=== PATIENT | female | born 1965 | race Caucasian/White ===

== ENCOUNTER 2017-04-07 18:24 | Observation (INO) | payer OTHER ==
[~2017-04-07] VITALS: Ht 162.6 cm; Wt 105.6 kg
[2017-04-07] VITALS (10 sets, daily range): BP systolic 133–176; BP diastolic 72–86; PULSE 55–68; RESP 16–18; TEMP 97–98.6; O2SAT 96–100
--- NOTE | 2017-04-07 18:43 | PD ---
HPI Chief Complaint: Chest Pain Time Seen by Provider: 18:34 Travel History International Travel<30 days: No Contact w/Intl Traveler<30days: No Traveled to known affect area: No History of Present Illness HPI 51-year-old female here by private vehicle for evaluation of chest pain that started about 30 minutes prior to arrival while driving. Patient describes substernal chest pressure that radiates to her left shoulder. Pain is currently 3 out of 10. No modifying factors. She states she feels as though the pressure is similar to previous episodes of bronchitis, however she has not been coughing and has not had any recent upper respiratory symptoms. No fevers or chills. No paresthesias or motor deficits. Patient reports history of severe case of croup when she was younger with frequent pulmonary infections subsequently. She denies any known history of CAD. No family history of CAD. She is a nonsmoker. No history of DVT or PE. PFSH Past Medical History Anxiety: Yes Cancer: No Cardiovascular Problems: No Diabetes: No Diminished Hearing: No Endocrine: No Gastrointestinal Disorders: Yes (GERD; HIATAL HERNIA SX) Hepatitis: No Hiatal Hernia: Yes (HX) Immune Disorder: No Musculoskeletal: No Neurologic: No Psychiatric: No Reproductive: Yes (PELVIC PAIN) Respiratory: No Immunizations Current: Yes Thyroid Disease: No Tetanus Vaccination: Unknown Influenza Vaccination: No ?: Not Tubal Ligation: Yes Past Surgical History Abdominal Surgery: Yes (11/23 EXP LAP; 2004 CHRISTOPH ; 2011 LAP BAND) AICD: No Body Medical Devices: LAP BAND Cholecystectomy: Yes Gynecologic Surgery: Yes (ABLATION) Hysterectomy: Yes Joint Replacement: No Pacemaker: No Other Surgery: Yes Social History Alcohol Use: Yes (1-2 DRINKS PER WEEK) Tobacco Use: No Substance Use: No Allergies-Medications (Allergen,Severity, Reaction): Coded Allergies: Codeine (Unverified Allergy, Intermediate, PAIN UPPER ABD FOLLOWED BY ANXIETY, 04/07/17) Morphine (Unverified Allergy, Intermediate, LUZMA UPPER ABD FOLLOWED BY ANXIETY, 04/07/17) Amoxicillin (Verified Allergy, Mild, Rash, 04/07/17) Reported Meds & Prescriptions Reported Meds & Active Scripts Active No Active Prescriptions or Reported Medications Review of Systems Except as stated in HPI: all other systems reviewed are Neg Physical Exam Narrative GENERAL: Well-developed, well-nourished, overweight, comfortable, no apparent distress. SKIN: Focused skin assessment warm/dry. HEAD: Atraumatic. Normocephalic. EYES: Pupils equal and round. No scleral icterus. No injection or drainage. ENT: Mucous membranes pink and moist. NECK: Trachea midline. No JVD. CARDIOVASCULAR: Regular rate and rhythm. Distal pulses brisk and equal bilaterally. RESPIRATORY: No accessory muscle use. Clear to auscultation. Breath sounds equal bilaterally. GASTROINTESTINAL: Abdomen soft, non-tender, nondistended. MUSCULOSKELETAL: No obvious deformities. No clubbing. No cyanosis. No edema. NEUROLOGICAL: Awake and alert. No obvious cranial nerve deficits. Motor grossly within normal limits. Normal speech. PSYCHIATRIC: Appropriate mood and affect; insight and judgment normal. Data Data Last Documented VS Vital Signs Date Time Temp Pulse Resp B/P Pulse Ox O2 Delivery O2 Flow Rate FiO2 04/07/17 20:36 68 18 138/82 98 Room Air 04/07/17 18:30 98.6 Orders Electrocardiogram (04/07/17 18:39) Basic Metabolic Panel (Bmp) (04/07/17 18:39) Ckmb (Isoenzyme) Profile (04/07/17 18:39) Complete Blood Count With Diff (04/07/17 18:39) D-Dimer (04/07/17 18:39) Magnesium (Mg) (04/07/17 18:39) Prothrombin Time / Inr (Pt) (04/07/17 18:39) Act Partial Throm Time (Ptt) (04/07/17 18:39) Troponin I (04/07/17 18:39) Chest, Single Ap (04/07/17 18:39) Ecg Monitoring (04/07/17 18:39) Bilateral Bp Monitoring (04/07/17 18:39) Iv Access Insert/Monitor (04/07/17 18:39) Oximetry (04/07/17 18:39) Oxygen Administration (04/07/17 18:39) Aspirin Chew (Aspirin Chew) (04/07/17 18:45) Sodium Chloride 0.9% Flush (Ns Flush) (04/07/17 18:45) Nitroglycerin Sl (Nitrostat Sl) (04/07/17 18:45) Ct Pulmonary Angiogram (04/07/17 19:37) Iohexol 350 Inj (Omnipaque 350 Inj) (04/07/17 20:01) Labs Laboratory Tests Test 04/07/17 18:30 White Blood Count 9.0 TH/MM3 Red Blood Count 4.47 MIL/MM3 Hemoglobin 13.3 GM/DL Hematocrit 39.3 % Mean Corpuscular Volume 88.1 FL Mean Corpuscular Hemoglobin 29.8 PG Mean Corpuscular Hemoglobin 33.8 % Concent Red Cell Distribution Width 13.0 % Platelet Count 273 TH/MM3 Mean Platelet Volume 8.7 FL Neutrophils (%) (Auto) 65.8 % Lymphocytes (%) (Auto) 27.9 % Monocytes (%) (Auto) 4.8 % Eosinophils (%) (Auto) 1.2 % Basophils (%) (Auto) 0.3 % Neutrophils # (Auto) 6.0 TH/MM3 Lymphocytes # (Auto) 2.5 TH/MM3 Monocytes # (Auto) 0.4 TH/MM3 Eosinophils # (Auto) 0.1 TH/MM3 Basophils # (Auto) 0.0 TH/MM3 CBC Comment DIFF FINAL Differential Comment Prothrombin Time 10.4 SEC Prothromb Time International 0.9 RATIO Ratio Activated Partial 25.5 SEC Thromboplast Time D-Dimer Quantitative (PE/DVT) 0.43 MG/L FEU Sodium Level 144 MEQ/L Potassium Level 4.1 MEQ/L Chloride Level 107 MEQ/L Carbon Dioxide Level 27.9 MEQ/L Anion Gap 9 MEQ/L Blood Urea Nitrogen 23 MG/DL Creatinine 0.69 MG/DL Estimat Glomerular Filtration 90 ML/MIN Rate Random Glucose 81 MG/DL Calcium Level 9.5 MG/DL Magnesium Level 2.4 MG/DL Total Creatine Kinase 66 U/L Troponin I LESS THAN 0.02 NG/ML [facility] Medical Decision Making Medical Screen Exam Complete: Yes Emergency Medical Condition: Yes Medical Record Reviewed: Yes Interpretation(s) EKG: Sinus, rate 67, leftward axis, normal intervals, T-wave inversions in V1 through V5, S1Q3T3 pattern, unchanged from prior Differential Diagnosis ACS, pneumothorax, pericarditis, PE, pneumonia, GERD Narrative Course Vital signs reviewed. CBC is unremarkable. BMP is unremarkable. Cardiac enzymes are negative. Chest x-ray: No acute disease. CT pulmonary angiogram: CONCLUSION: 1. No evidence of pulmonary emboli. 2. The lungs are clear. Patient was made aware of all findings. She is resting comfortably. Chest pain did improve with sublingual nitroglycerin. She is still having some left scapular/shoulder pain. She was given a full aspirin here in the emergency department. She will be admitted to the chest pain center for further cardiac evaluation. She is amenable to this plan. Case discussed with hospitalist Dr. Soriano who will admit the patient to her service to the chest pain center. Diagnosis Primary Impression: Chest pain Qualified Code: R07.9 - Chest pain, unspecified type Admitting Information Admitting Physician Requests: Observation Scripts No Active Prescriptions or Reported Meds Luis Mayorga MD Apr 07, 2017 18:43
[2017-04-07] MEDS ORDERED: NITROGLYCERIN 0.4 MG SL 25 TABS/BTL SL ONE (18:45)
[2017-04-07] MEDS ORDERED: ASPIRIN 81 MG CHEW TAB PO ONE (18:45)
[2017-04-07] MEDS ORDERED: SODIUM CHLORIDE 0.9% FLUSH 10 ML FLUSH IVF PRN (18:45)
[2017-04-07 19:11] LABS: BASOPHIL % 0.3 % (0.0-2.0); EOSINOPHIL # 0.1 TH/MM3 (0-0.4); EOSINOPHIL % 1.2 % (0.0-4.0); HEMATOCRIT 39.3 % (35.0-46.0); HEMO FLAGS DIFF FINAL; LYMPH % 27.9 % (9.0-44.0); LYMPHOCYTE # 2.5 TH/MM3 (1.0-4.8); MEAN CELL VOLUME 88.1 FL (80.0-100.0); MEAN CORPUSCULAR HEMOGLOBIN 29.8 PG (27.0-34.0); MEAN CORPUSCULAR HGB CONC 33.8 % (32.0-36.0); MONO % 4.8 % (0.0-8.0); NEUT % 65.8 % (16.0-70.0); PLATELET COUNT 273 TH/MM3 (150-450); RED BLOOD COUNT 4.47 MIL/MM3 (4.00-5.30)
[2017-04-07 19:16] LABS: CHLORIDE 107 MEQ/L (98-107); POTASSIUM 4.1 MEQ/L (3.5-5.1); SODIUM (NA) 144 MEQ/L (136-145)
[2017-04-07 19:19] LABS: ANION GAP 9 MEQ/L (5-15); BICARBONATE 27.9 MEQ/L (21.0-32.0); BLOOD UREA NITROGEN 23 MG/DL (7-18); MAGNESIUM 2.4 MG/DL (1.5-2.5)
[2017-04-07 19:23] LABS: APTT (PATIENT) 25.5 SEC (24.3-30.1); GLOMERULAR FILTRATION RATE 90 ML/MIN (>89); INTERNATIONAL NORMALIZED RATIO 0.9 RATIO; PROTHROMBIN TIME - PATIENT 10.4 SEC (9.8-11.6)
[2017-04-07 19:28] LABS: CREATINE KINASE 66 U/L (26-192)
--- NOTE | 2017-04-07 20:00 | RADRPT ---
EXAM DATE/TIME: 04/07/2017 19:49 [facility] COMPARISON: CHEST SINGLE AP, April 23, 2015, 20:22. INDICATIONS : Patient had chest pain since she woke up this morning. MEDICAL HISTORY : None. SURGICAL HISTORY : None. ENCOUNTER: Initial ACUITY: 1 day PAIN SCORE: 2/10 LOCATION: Left chest FINDINGS: A single view of the chest demonstrates the lungs to be symmetrically aerated without evidence of mas s, infiltrate or effusion. The cardiomediastinal contours are unremarkable. Osseous structures are intact. CONCLUSION: No acute disease. Karlo Youngblood MD on April 07, 2017 at 19:57 Board Certified Radiologist. This report was verified electronically.
[2017-04-07] MEDS ORDERED: IOHEXOL 350 MG/ML 10 ML VIAL (for RAD DIAG) IV ONE (20:01)
--- NOTE | 2017-04-07 20:16 | RADRPT ---
EXAM DATE/TIME: 04/07/2017 19:47 [facility] COMPARISON: No previous studies available for comparison. INDICATIONS : Chest pain radiating to left shoulder for 30 minutes prior to arriving in emergency room. IV CONTRAST: 75 cc Omnipaque 350 (iohexol) IV RADIATION DOSE: 19.03 CTDIvol (mGy) MEDICAL HISTORY : Hernia, hiatal. SURGICAL HISTORY : Cholecystectomy. Tubal ligation.Hysterectomy.Lap band ENCOUNTER: Initial ACUITY: 1 day PAIN SCALE: 3/10 LOCATION: Left chest TECHNIQUE: Volumetric scanning of the chest was performed using a pulmonary embolism protocol MIP images were re constructed. Using automated exposure control and adjustment of the mA and/or kV according to patien t size, radiation dose was kept as low as reasonably achievable to obtain optimal diagnostic quality images. DICOM format image data is available electronically for review and comparison. FINDINGS: PULMONARY ARTERIES: No filling defects are seen in the pulmonary arteries through the segmental level. LUNGS: There is no consolidation or pneumothorax . No concerning pulmonary nodule is visualized. PLEURAE: There is no pleural thickening or pleural effusion. MEDIASTINUM: There is good visualization of the great vessels of the middle mediastinum. No evidence of mediastin al or hilar adenopathy/mass. MUSCULOSKELETAL: Within normal limits for patient age. MISCELLANEOUS: The visualized upper abdominal organs demonstrate no acute abnormality. CONCLUSION: 1. No evidence of pulmonary emboli. 2. The lungs are clear. Karlo Youngblood MD on April 07, 2017 at 20:12 Board Certified Radiologist. This report was verified electronically.
[2017-04-07] MEDS ORDERED: SODIUM CHLORIDE 0.9% FLUSH 10 ML FLUSH IV FLUSH PRN (20:45)
[2017-04-07] MEDS: SODIUM CHLORIDE 0.9% FLUSH 10 ML FLUSH SCH (21:09)
[2017-04-07 22:16] LABS: CREATINE KINASE 54 U/L (26-192)
[2017-04-08 00:28] VITALS: PULSE 63
[2017-04-08 00:41] LABS: CREATINE KINASE 58 U/L (26-192)
[2017-04-08 04:00] VITALS: BP 144/77; PULSE 60; RESP 18; TEMP 97.9; O2SAT 97
--- NOTE | 2017-04-08 07:02 | EKG ---
Date Performed: 04/07/2017 Time Performed: 21:35:51 PTAGE: 51 years EKG: SINUS BRADYCARDIA POSSIBLE LEFT ATRIAL ENLARGEMENT BORDERLINE LEFT AXIS DEVIATION INCOMPLET E RIGHT BUNDLE BRANCH BLOCK POSSIBLE LEFT VENTRICULAR HYPERTROPHY Nonspecific T wave changes ABNORMAL ECG No prior electrocardiogram available for comparison DOCTOR: Terry Alan Interpretating Date/Time 04/08/2017 07:00:41
--- NOTE | 2017-04-08 07:02 | EKG ---
Date Performed: 04/08/2017 Time Performed: 00:24:10 PTAGE: 51 years EKG: Sinus rhythm POSSIBLE LEFT ATRIAL ENLARGEMENT BORDERLINE LEFT AXIS DEVIATION POSSIBLE RIGHT VENTRICULAR CONDUCTIO N DELAY POSSIBLE LEFT VENTRICULAR HYPERTROPHY Nonspecific T wave changes ABNORMAL ECG NO SIGNIFICANT CHANGE FROM PRIOR ELECTROCARDIOGRAM. PREVIOUS TRACING : 04/07/2017 21.35 DOCTOR: Terry Alan Interpretating Date/Time 04/08/2017 07:00:01
[2017-04-08 08:00] VITALS: BP 149/88; PULSE 53; RESP 18; TEMP 98.4; O2SAT 98; O2SAT 99
[2017-04-08] MEDS: SODIUM CHLORIDE 0.9% FLUSH 10 ML FLUSH SCH (09:00)
--- NOTE | 2017-04-08 10:10 | HHI.HP ---
[facility] Primary Care Physician Abril Tripathi MD Admission Diagnosis Chest Pain Diagnoses: Chief Complaint: Chest pain Travel History International Travel<30 Days: No Contact w/Intl Traveler <30 Da: No Traveled to Known Affected Are: No History of Present Illness Ms. Guerrero is a pleasant 51-year-old female with a history of hypertension, anxiety who presented to the emergency department on 04/07/2017 due to chest pain. At around 5 PM on 04/07/2017 [address] home and started experiencing substernal pressure-like sensation. Her chest discomfort radiated to her left shoulder and lasted for more than one hour. She has been having off-and-on dizziness in the last 5 days as well. She denies any nausea, vomiting, diaphoresis during her chest discomfort episode. Denies any shortness of breath, fever or chills. No abdominal pain. No changes in bowel or bladder habits. Review of Systems Except as stated in HPI: all other systems reviewed are Neg Past Family Social History Past Medical History Anxiety, hypertension Past Surgical History Exploratory laparotomy, cholecystectomy, lap band, hysterectomy Reported Medications Patient does not take any medications on a regular basis. However she was on Paxil for anxiety. Allergies: Coded Allergies: Codeine (Unverified Allergy, Intermediate, PAIN UPPER ABD FOLLOWED BY ANXIETY, 04/07/17) Morphine (Unverified Allergy, Intermediate, LUZMA UPPER ABD FOLLOWED BY ANXIETY, 04/07/17) Amoxicillin (Verified Allergy, Mild, Rash, 04/07/17) Family History Mother at age 58 from suspected opioid overdose. Father and brother - diabetes mellitus. Social History Patient denies smoking or using any illicit drugs. She drinks socially. Physical Exam Vital Signs Vital Signs Date Time Temp Pulse Resp B/P Pulse Ox O2 Delivery O2 Flow Rate FiO2 04/08/17 08:00 98.4 53 18 149/88 98 04/08/17 08:00 99 21 04/08/17 04:00 97.9 60 18 144/77 97 04/08/17 00:28 63 04/07/17 23:09 58 18 98 04/07/17 22:59 97.0 60 16 135/79 96 04/07/17 22:36 55 18 141/74 99 Room Air 04/07/17 21:53 98 21 04/07/17 21:38 61 18 148/72 99 Room Air 04/07/17 20:36 68 18 138/82 98 Room Air 04/07/17 19:28 66 18 133/80 99 Room Air 04/07/17 19:01 173/86 176/72 04/07/17 18:59 65 18 176/72 97 Room Air 04/07/17 18:41 100 Room Air 04/07/17 18:41 100 04/07/17 18:36 67 16 100 04/07/17 18:30 98.6 67 16 173/86 100 Physical Exam GENERAL: This is a well-nourished, well-developed patient, in no apparent distress. SKIN: No rashes, ecchymoses or lesions. Warm and dry. HEAD: Atraumatic. Normocephalic. No temporal or scalp tenderness. EYES: Pupils equal round and reactive. No injection or drainage. ENT: Nose without bleeding, purulent drainage or septal hematoma. Airway patent. NECK: Trachea midline. No lymphadenopathy. Supple, nontender, no meningeal signs. CARDIOVASCULAR: Regular rhythm, bradycardic without murmurs, gallops, or rubs. No JVD. RESPIRATORY: Clear to auscultation. Breath sounds equal bilaterally. No wheezes , rales, or rhonchi. GASTROINTESTINAL: Abdomen soft, non-tender, nondistended. No guarding. MUSCULOSKELETAL: Extremities without clubbing, cyanosis, or edema. Lower ext, ankle area is somewhat sweaty. NEUROLOGICAL: Awake and alert. Cranial nerves II through XII intact. No focal neurological deficits. Normal speech. Laboratory Laboratory Tests Test 04/07/17 04/07/17 04/08/17 18:30 21:25 00:00 White Blood Count 9.0 Red Blood Count 4.47 Hemoglobin 13.3 Hematocrit 39.3 Mean Corpuscular Volume 88.1 Mean Corpuscular Hemoglobin 29.8 Mean Corpuscular Hemoglobin 33.8 Concent Red Cell Distribution Width 13.0 Platelet Count 273 Mean Platelet Volume 8.7 Neutrophils (%) (Auto) 65.8 Lymphocytes (%) (Auto) 27.9 Monocytes (%) (Auto) 4.8 Eosinophils (%) (Auto) 1.2 Basophils (%) (Auto) 0.3 Neutrophils # (Auto) 6.0 Lymphocytes # (Auto) 2.5 Monocytes # (Auto) 0.4 Eosinophils # (Auto) 0.1 Basophils # (Auto) 0.0 CBC Comment DIFF FINAL Differential Comment Prothrombin Time 10.4 Prothromb Time International 0.9 Ratio Activated Partial 25.5 Thromboplast Time D-Dimer Quantitative (PE/DVT) 0.43 Sodium Level 144 Potassium Level 4.1 Chloride Level 107 Carbon Dioxide Level 27.9 Anion Gap 9 Blood Urea Nitrogen 23 Creatinine 0.69 Estimat Glomerular Filtration 90 Rate Random Glucose 81 Calcium Level 9.5 Magnesium Level 2.4 Total Creatine Kinase 66 54 58 Troponin I LESS THAN 0.02 LESS THAN 0.02 LESS THAN 0.02 Result Diagram: 04/07/17182904/07/171829 Imaging Last Imp[address] CT Angiography 04/07/171936 Signed Impressions: Service Date/Time: March 19:47 - CONCLUSION: 1. No evidence of pulmonary emboli. 2. The lungs are clear. Karlo Youngblood MD Chest X-Ray 04/07/171838 Signed Impressions: Service Date/Time: March 19:49 - CONCLUSION: No acute disease. Karlo Youngblood MD Assessment and Plan Problem List: (1) Chest pain ICD Code: R07.9 Status: Acute (2) HTN (hypertension) ICD Code: I10 Status: Acute (3) Anxiety ICD Code: F41.9 Status: Acute (4) Morbid obesity with BMI of 40.0-44.9, adult ICD Code: E66.01 Status: Acute Assessment and Plan Ms. Guerrero is a pleasant 51-year-old female with a history of anxiety, hypertension who presented to the emergency department with chest pain. - Acute chest pain - EKG shows T wave inversions in precordial leads. - Troponins negative so far. - Will start patient on Aspirin 81mg Qday and obtain Lipid profile. - Will obtain a nuclear stress test. - Hypertension - Start Amlodipine 2.5mg Qday. - Anxiety - Patient was on Paxil. Patient is advised to resume it at home. - Morbid obesity - Lifestyle modification would be recommended. Full code. Ambulation. Problem Qualifiers (1) Chest pain: Qualified Code: R07.9 - Chest pain, unspecified type Jael Cavazos DO Apr 08, 2017 10:10 am
[2017-04-08] MEDS ORDERED: REGADENOSON INJ 0.4 MG/5 ML SYR IV ONE (12:16)
[2017-04-08 13:27] LABS: HDL CHOLESTEROL 63.3 MG/DL (40.0-60.0)
--- NOTE | 2017-04-08 14:37 | RADRPT ---
EXAM DATE/TIME: 04/08/2017 12:17 [facility] COMPARISON: No previous studies available for comparison. INDICATIONS : Substernal chest pain radiating to the left shoulder. Abnormal EKG. DOSE: 35 mCi Tc99m Myoview at stress. 10.9 mCi Tc99m Myoview at rest. 0.4 mg Lexiscan STRESS SYMPTOMS: Facial flush and chest pressure. EJECTION FRACTION: 60% MEDICAL HISTORY : Hypercholesterolemia. Hypertension. Gastroesophageal reflux disease. SURGICAL HISTORY : Tubal ligation. Hysterectomy. Cholecystectomy. ENCOUNTER: Initial ACUITY: 1 day PAIN SCALE: 5/10 LOCATION: Substernal chest TECHNIQUE: The patient underwent pharmacologic stress with infusion of prescribed dose. Continuous ECG tracing was monitored during stress. Gated SPECT imaging was performed after stress and conventional SPECT i maging was performed at rest. The examination was performed on a SPECT/CT scanner, both attenuation and non-corrected datasets were reviewed. FINDINGS: DISTRIBUTION: The maximum perfused segment at stress is in the septal wall. PERFUSION STUDY: Is a small area of mildly diminished relative perfusion involving the inferior apical region. No evid ence of redistribution. GATED STUDY: There is intact wall motion and thickening without hypokinetic or dyskinetic segments. CONCLUSION: Questionable small perfusion abnormality in the inferoapical region with no evidence of redistributio n. RISK CATEGORY: Low (<1% Annual Mortality Rate) Mode Mcdaniels MD on April 08, 2017 at 14:32 Board Certified Radiologist. This report was verified electronically.
--- NOTE | 2017-04-08 15:25 | TR ---
Date Performed: 04/08/2017 Time Performed: 12:49:53 DOCTOR: Luciano Greer DRUG LIST: CLINICAL HISTORY: REASON FOR TEST: Chest pain REASON FOR ENDING: OBSERVATION: CONCLUSION: Lexiscan stress test was performed under standard four minute protocol. Radionuclid e was injected one minute prior to ending the test. No electrocardiographic abormalities were present to suggest ischemia. Nuclear imaging and interpretation are pending. COMMENTS:
[2017-04-08 16:00] VITALS: BP 147/81; PULSE 58; RESP 18; TEMP 97.7; O2SAT 99
[2017-04-08] MEDS ORDERED: amLODIPine BESYLATE 5 MG TAB PO ONE (16:00)
[2017-04-08] MEDS ORDERED: PILL SPLITTER OTHER PRN (16:15)
[2017-04-08] MEDS ORDERED: NITROGLYCERIN 2% OINT 1 GM PACKET TOPICAL PRN (17:00)
[2017-04-08] MEDS ORDERED: AMLO5 PO (17:08)
[2017-04-08] MEDS ORDERED: LIPI20TA PO (17:10)
[2017-04-08] MEDS ORDERED: ATORVASTATIN 40 MG TAB PO SCH (21:00)
[2017-04-08] MEDS ORDERED: METOPROLOL TARTRATE 25 MG TAB PO SCH (21:00)
[2017-04-09] MEDS ORDERED: ASPIRIN EC 81 MG TABEC PO SCH (09:00)
[2017-04-09] MEDS ORDERED: amLODIPine BESYLATE 5 MG TAB PO SCH (09:00)
--- NOTE | 2017-04-10 13:29 | EKG ---
Date Performed: 04/07/2017 Time Performed: 18:33:40 PTAGE: 51 years EKG: NO FURTHER INTERPRETATION POSSIBLE ATYPICAL ECG WARNING: DATA QUALITY MAY AFFECT INTERPRETA TION PREVIOUS TRACING : 04/23/2015 19.45 Compared to prior tracing no significant change DOCTOR: Nena Javed Interpretating Date/Time 04/10/2017 13:22:05
== END 2017-04-08 18:24 | disposition home or self-care (01) ==
LOC: PHED 18:24 → PHEDA 20:37 → PH3A 22:59
PROVIDERS: ADMIT Hospitalist; ATTEND Hospitalist
DX: R07.89 Other chest pain (principal); I10 Essential (primary) hypertension; F41.9 Anxiety disorder, unspecified; R42 Dizziness and giddiness; R00.1 Bradycardia, unspecified; M25.512 Pain in left shoulder; R94.31 Abnormal electrocardiogram [ECG] [EKG]; I45.10 Unspecified right bundle-branch block; E78.00 Pure hypercholesterolemia, unspecified; K21.9 Gastro-esophageal reflux disease without esophagitis; E66.01 Morbid (severe) obesity due to excess calories; Z68.41 Body mass index [BMI] 40.0-44.9, adult; Z98.84 Bariatric surgery status
CPT/HCPCS: 71010; 71275; 78452; 80048; 80061; 82550; 83735; 84484; 85025; 85379; 85610; 85730; 93005; 93017; 99285; A9502; G0378; J2785; Q9967